=== PATIENT | female | born 1955 | race Caucasian/White ===

== ENCOUNTER 2022-06-24 13:22 | Emergency (ER) | payer BC, MEDICARE, SELFPAY ==
[2022-06-24 14:40] VITALS: BP 152/81; PULSE 72; RESP 20; TEMP 36.4; O2SAT 96; BMI 26.5
[2022-06-24 15:01] LABS: Apearance,Urine Clear (Clear); Bilirubin,Urine Negative (Negative); Blood, Urine Negative (Negative); Color,Urine Yellow (Yellow); Glucose,Urine (UA) Negative (Negative); Ketones,Urine Negative (Negative); Protein,Urine Negative (Negative); UTC Leukocyte Esterase,Urine Trace (Negative); UTC Nitrate,Urine Negative (Negative); Urobilinogen,Urine 0.2 EU/dl (0.2)
--- NOTE | 2022-06-24 15:20 | EXP.UTC ---
Discharge Plan Disposition Patient Disposition: Home, Self-Care Condition: Good Prescriptions Prescriptions: New cefdinir 300 mg capsule 300 mg PO Q12H 7 Days Qty: 14 0RF Referrals Follow up/Referrals: Yee Weiss MD [Primary Care Provider] - See instructions Activity Restrictions/Add. Instructions Additional Instructions/Restrictions: *Increase fluids. Water not Soda or Tea *Start antibiotic immediately and be sure to take as ordered for the FULL length of time although you should start to see improvement over the next 48 hours *Be SURE to follow up anytime for new or worsening symptoms with your family doctor. AND in 48 hours for urine culture results with your family doctor, if you do not have a doctor then you may call back to the [facility] for urine culture results and further treatment. We do recommend that you choose and establish care with a Primary Care Physician. ?AND follow up with them ?in 10-14 days to repeat UA to ensure infection is resolved and blood no longer present *Be sure to let your PCP know that we sent urine cultures from the [facility] so they can follow up to ensure that you area the on the correct antibiotic Call your doctor office and make appointment for 48 hours (2 days from today) ?to follow up and get the results of your urine culture and further treatment Clinical Impressions Clinical Impression: UTI (urinary tract infection) Instructions Patient Instructions: DI for Urinary Tract Infection (UTI) Discharge ED Provider: Chrissy Bran [facility] [place] General Stated complaint: sheehan when urinates Mode of Arrival: Ambulatory Source of Information: Patient and Parent(s) Limitations: No Limitations Time Seen by Provider: 06/24/22 15:21 Description of Symptoms (Recalled from Triage Doc. by RN): PATIENT C/O BURNING AND FREQUENCY WITH URINATION HEENT Symptoms (Recalled from RN notes): No Resp Symptoms (Recalled from RN notes): No Skin Symptoms (Recalled from RN notes): No MS Symptoms (Recalled from RN notes): No Functional Status (Recalled from RN notes): WNL History of Present Illness Provider Complaint: Patient states that she thinks she may have a UTI States that she has been having burning with urination and frequency States that feels like it does when she has UTI Related Data Previous Rx's Medication Instructions Recorded cefdinir 300 mg capsule 300 mg PO Q12H 7 days #14 caps 06/24/22 Allergies Allergy/AdvReac Type Severity Reaction Status Date / Time acetaminophen [From Midol] Allergy Verified 06/24/22 14:58 amoxicillin Allergy Verified 06/24/22 14:58 azithromycin Allergy Verified 06/24/22 14:58 cephalexin [From Keflex] Allergy Verified 06/24/22 14:58 pamabrom [From Midol] Allergy Verified 06/24/22 14:58 Penicillins Allergy Verified 06/24/22 14:58 Worker's Comp Is this a Worker's Comp case?: No PFSH PFSH Medical History (Updated 06/24/22 @ 15:37 by Chrissy Bran APRN) Hypertension Migraine Thyroid disease Urinary tract infection Social History (Updated 06/24/22 @ 14:42 by Jessica Marques RN) Smoking Status: Unknown if ever smoked alcohol intake: never current occupational status: other Travel in the last 8 weeks: None ROS Obtained: Yes All systems reviewed & no additional complaints except as documented and Yes Systems reviewed as appropriate & no additional complaints except as documented Constitutional Constitutional: Reports system reviewed and no additional complaints, except as documented and Reports as per HPI Cardiovascular Cardiovascular: Reports system reviewed and no additional complaints, except as documented and Reports as per HPI Respiratory Respiratory: Reports system reviewed and no additional complaints, except as documented and Reports as per HPI Gastrointestinal Gastrointestingal: Reports system reviewed and no additional complaints, except as documented and as per HPI Genitourinary Female Genitourinary: Reports system review
[2022-06-24 15:37] VITALS: BP 152/81; PULSE 72; RESP 20; TEMP 36.4; O2SAT 96
== END 2022-06-24 15:40 | disposition home or self-care (01) ==
PROVIDERS: Emergency Provider Nurse Practitioner; PCP Internal Medicine
DX: N39.0 Urinary tract infection, site not specified (principal); I10 Essential (primary) hypertension; E07.9 Disorder of thyroid, unspecified; G43.909 Migraine, unspecified, not intractable, without status migrainosus; Z88.0 Allergy status to penicillin; Z88.1 Allergy status to other antibiotic agents; Z88.3 Allergy status to other anti-infective agents; Z88.6 Allergy status to analgesic agent; Z88.8 Allergy status to other drugs, medicaments and biological substances
CPT/HCPCS: 81003; 87086; 87088; 87186; 99213; G0463

== ENCOUNTER 2022-07-30 16:17 | Emergency (ER) | payer BC, SELFPAY ==
[2022-07-30 16:42] VITALS: BP 179/100; PULSE 85; RESP 19; TEMP 36.7; O2SAT 99; BMI 26.5
--- NOTE | 2022-07-30 16:55 | EXP.UTC ---
Discharge Plan Disposition Patient Disposition: Home, Self-Care Condition: Good Prescriptions Prescriptions: New cefdinir 300 mg capsule 300 mg PO BID Qty: 20 0RF No Action cefdinir 300 mg capsule 300 mg PO Q12H 7 Days Qty: 14 0RF Referrals Follow up/Referrals: Marcos Prado MD [Primary Care Provider] - See instructions Activity Restrictions/Add. Instructions Additional Instructions/Restrictions: Drink plenty of fluids. Take the medications as directed. Follow up with your regular doctor. GO TO THE ER FOR ANY WORSENING SYMPTOMS We will culture the urine. That will tell what bacteria is causing your infection and which antibiotics will treat it best. Sometimes the first antibiotic we prescribe turns out to not work against different bacteria. So, make sure you follow up within 3 days if you are not getting better. Clinical Impressions Clinical Impression: UTI (urinary tract infection) Instructions Patient Instructions: Urinary Tract Infection, DI for Urinary Tract Infection (UTI) Discharge ED Provider: Shawn Mock [facility] General Stated complaint: URINATING BLOOD Mode of Arrival: Ambulatory Source of Information: Patient Limitations: No Limitations Time Seen by Provider: 07/30/22 17:12 Description of Symptoms (Recalled from Triage Doc. by RN): pt comes in with c/o urgency and passing blood with urination. symptoms began 2 hours ago. HEENT Symptoms (Recalled from RN notes): No Resp Symptoms (Recalled from RN notes): No Skin Symptoms (Recalled from RN notes): No MS Symptoms (Recalled from RN notes): No Functional Status (Recalled from RN notes): n/a History of Present Illness Provider Complaint: She states that since earlier today she has had dysuria, low back pain and hematuria. Related Data Previous Rx's Medication Instructions Recorded cefdinir 300 mg capsule 300 mg PO Q12H 7 days #14 caps 06/24/22 cefdinir 300 mg capsule 300 mg PO BID #20 caps 07/30/22 Allergies Allergy/AdvReac Type Severity Reaction Status Date / Time acetaminophen [From Midol] Allergy Verified 07/30/22 16:49 amoxicillin Allergy Verified 07/30/22 16:49 azithromycin Allergy Verified 07/30/22 16:49 cephalexin [From Keflex] Allergy Verified 07/30/22 16:49 pamabrom [From Midol] Allergy Verified 07/30/22 16:49 Penicillins Allergy Verified 07/30/22 16:49 Worker's Comp Is this a Worker's Comp case?: No PFSH PFSH Medical History Hypertension Migraine Thyroid disease Urinary tract infection Social History Smoking Status: Unknown if ever smoked alcohol intake: never current occupational status: other Travel in the last 8 weeks: None ROS Obtained: Yes All systems reviewed & no additional complaints except as documented Constitutional Constitutional: Denies chills and Denies fever(s) Eyes Eyes: Denies eye discharge ENT Ears, Nose, Mouth, and Throat: Denies dizziness, Denies otalgia and Denies sore throat Cardiovascular Cardiovascular: Denies chest pain Respiratory Respiratory: Denies shortness of breath, Denies chest congestion, Denies cough, Denies stridor and Denies wheezing Gastrointestinal Gastrointestingal: Denies nausea or vomiting Genitourinary Female Genitourinary: Reports as per HPI, Reports dysuria, Reports sexual dysfunction, Reports urinary frequency, Denies urinary incontinence and Reports urinary hesitancy Musculoskeletal Musculoskeletal: Reports system reviewed and no additional complaints, except as documented and Denies arthralgias Integumentary/Breasts Skin/Breast: Denies rash Neurologic Neurologic: Denies dizziness and Denies paresthesias Allergic/Immunologic Allergic/Immunologic: Denies wheezing Physical Exam General General appearance: alert and in no apparent distress Head Head exam: atraumatic, normocephalic and normal inspection Eye Eye ex
[2022-07-30 17:07] LABS: Apearance,Urine Cloudy (Clear); Color,Urine Red (Yellow)
[2022-07-30 17:08] LABS: Bilirubin,Urine 1+ (Negative); Blood, Urine 3+ (Negative); Glucose,Urine (UA) Negative (Negative); Ketones,Urine TRACE (Negative); Protein,Urine 2+ (Negative); Specific Gravity, Urine >= 1.030 (1.005-1.030); UTC Leukocyte Esterase,Urine 1+ (Negative); UTC Nitrate,Urine Positive (Negative); Urobilinogen,Urine 1 EU/dl (0.2)
[2022-07-30 17:23] VITALS: BP 179/100; PULSE 85; RESP 19; TEMP 36.7
== END 2022-07-30 17:37 | disposition home or self-care (01) ==
PROVIDERS: Emergency Provider Nurse Practitioner Family; PCP Internal Medicine
DX: N39.0 Urinary tract infection, site not specified (principal); R31.9 Hematuria, unspecified; M54.50 Low back pain, unspecified; I10 Essential (primary) hypertension; G43.909 Migraine, unspecified, not intractable, without status migrainosus; E07.9 Disorder of thyroid, unspecified; Z88.0 Allergy status to penicillin; Z88.1 Allergy status to other antibiotic agents; Z88.3 Allergy status to other anti-infective agents; Z88.8 Allergy status to other drugs, medicaments and biological substances; Z87.440 Personal history of urinary (tract) infections
CPT/HCPCS: 81003; 87086; 87088; 87186; 99213; G0463

== ENCOUNTER 2025-09-07 18:08 | Emergency (ER) | payer BC, SELFPAY ==
[2025-09-07] VITALS (10 sets, daily range): BP systolic 118–179; BP diastolic 70–103; PULSE 61–94; RESP 15–24; TEMP 36.3–37.1; O2SAT 95–98; BMI 24.7
--- NOTE | 2025-09-07 18:05 | ECG_ITS ---
APPROVED REPORT Exam: Resting ECG HR:92 bpm ECG Measurements Heart Rate 92 AXES [place] 152 P 63 QRSd 86 QRS 50 QT 339 T 7 QTc 389 Conclusion Normal sinus rhythm without acute ST or T wave changes concerning for ischemia Electronically signed by : Betsy Danielle, 09/08/2025 00:37:31
--- NOTE | 2025-09-07 18:12 | CT_ITS ---
PROCEDURE INFORMATION: Exam: CTA Abdomen and Pelvis With Contrast Exam date and time: 09/07/2025 7:18 PM Age: 70 years old Clinical indication: Abdominal pain; Epigastric; Additional info: Pain in epi TECHNIQUE: Imaging protocol: Computed tomographic angiography of the abdomen and pelvis with contrast. Exam focused on the arteries. 3D rendering (Not supervised by radiologist): MIP and/or 3D reconstructed images were created by the technologist. Radiation optimization: All CT scans at this facility use at least one of these dose optimization techniques: automated exposure control; mA and/or kV adjustment per patient size (includes targeted exams where dose is matched to clinical indication); or iterative reconstruction. Contrast material: ISOVUE; Contrast volume: 80 ml; Contrast route: INTRAVENOUS (IV); COMPARISON: CT ANGIO CHEST 09/07/2025 7:18 PM FINDINGS: Aorta: No aortic aneurysm. No aortic dissection. Celiac and mesenteric arteries: No occlusion or significant stenosis. Renal arteries: No occlusion or significant stenosis. Right iliac arteries: No occlusion or significant stenosis. Left iliac arteries: No occlusion or significant stenosis. Liver: Simple hepatic cysts. Gallbladder and biliary ducts: Cholecystectomy. Pancreas: Unremarkable. No mass. No ductal dilation. Spleen: Unremarkable. No splenomegaly. Adrenal glands: Unremarkable. No mass. Kidneys and ureters: Unremarkable. No solid mass. No hydronephrosis. Stomach and bowel: Diverticulosis without diverticulitis. Appendix: No evidence of appendicitis. Intraperitoneal space: Unremarkable. No free air. No significant fluid collection. Lymph nodes: Unremarkable. No enlarged lymph nodes. Urinary bladder: Unremarkable. No mass. Reproductive: Unremarkable as visualized. Bones/joints: Vacuum disc L5-S1. Soft tissues: Unremarkable. IMPRESSION: No CTA evidence of aortic dissection.
--- NOTE | 2025-09-07 18:12 | CT_ITS ---
PROCEDURE INFORMATION: Exam: CTA Chest With Contrast Exam date and time: 09/07/2025 7:18 PM Age: 70 years old Clinical indication: Pain; Chest pressure; Additional info: Cp TECHNIQUE: Imaging protocol: Computed tomographic angiography of the chest with contrast. Exam focused on the arteries. 3D rendering (Not supervised by radiologist): MIP and/or 3D reconstructed images were created by the technologist. Radiation optimization: All CT scans at this facility use at least one of these dose optimization techniques: automated exposure control; mA and/or kV adjustment per patient size (includes targeted exams where dose is matched to clinical indication); or iterative reconstruction. Contrast material: ISOVUE; Contrast volume: 80 ml; Contrast route: INTRAVENOUS (IV); COMPARISON: CT ANGIO CHEST 09/07/2025 7:18 PM FINDINGS: Pulmonary arteries: Normal. No pulmonary emboli. Aorta: Unremarkable. No aortic aneurysm. No aortic dissection. Thyroid: Thyroid goiter. Lungs: Unremarkable. No consolidation. No masses. Pleural spaces: Unremarkable. No pneumothorax. No pleural effusion. Heart: Unremarkable. No cardiomegaly. No pericardial effusion. Lymph nodes: Unremarkable. No enlarged lymph nodes. Liver: Hepatic cysts. Gallbladder and biliary ducts: Cholecystectomy. Bones/joints: Unremarkable. No acute fracture. Soft tissues: Unremarkable. IMPRESSION: 1. No CTA evidence of pulmonary embolus. 2. Thyroid goiter. 3. Cholecystectomy.
[2025-09-07 18:23] LABS: Hematocrit 43.2 % (37.0-47.0); Hemoglobin 14.4 g/dL (12.2-16.2); Immature Granulocytes % 0.1 %; Mean Corpuscular HGB Conc 33.3 g/dL (31.8-35.4); Mean Corpuscular Hemoglobin 28.4 pg (27.0-31.2); Mean Corpuscular Volume 85.2 fl (81-99); Nucleated Red Blood Cells % 0 %; Platelet Count 314 K/mm3 (142-424); Red Blood Count 5.07 M/mm3 (4.20-5.40); Red Cell Distribution Width-SD 39.7 fL; White Blood Count 8.2 K/mm3 (4.8-10.8)
[2025-09-07] MEDS: ASPIRIN 325MG TABLET 325 MG PO (18:32)
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
[2025-09-07] MEDS: FAMOTIDINE 20MG/2ML VIAL 20 MG IV (18:33)
[2025-09-07] MEDS: ONDANSETRON 4MG/2ML VIAL 4 MG IV (18:33)
[2025-09-07 18:46] LABS: Alanine Aminotransferase 35 U/L (12-78); Albumin Level 4.7 g/dl (3.5-5.0); Albumin/Globulin Ratio 1.3 (1.1-1.8); Alkaline Phosphatase 92 U/L (38-126); Anion Gap 9.1 mEq/L (5-15); Aspartate Amino Transferase 43 U/L (14-36); Bilirubin,Total 0.4 mg/dl (0.2-1.3); Blood Urea Nitrogen 23 mg/dl (7-17); Calcium 9.9 mg/dl (8.4-10.2); Carbon Dioxide 30 mmol/L (22.0-30.0); Chloride 101 mmol/L (98-107); Creatinine Clearance Estimated 51 mL/min (50-200); Creatinine,Serum 0.80 mg/dl (0.52-1.04); Estimated Glomerular Filt Rate 71 ml/min (>60); GFR (African American) 85 ML/MIN (>60); Globulin 3.7 g/dL (1.3-3.2); Glucose 118 mg/dl (74-100); Lipase 125 U/L (23-300); Magnesium 2.1 mg/dl (1.6-2.3); Potassium 3.1 mmoL/L (3.5-5.1); Sodium 137 mmol/L (136-145); Total Protein,Serum 8.4 g/dl (6.3-8.2)
[2025-09-07 18:49] LABS: Activated Partial Thrombo Time 22.8 seconds (22.8-30.6); INR 0.93 (0.9-1.1); Prothrombin Time 10.4 seconds (10.1-12.5)
[2025-09-07 19:07] LABS: Troponin I < 0.01 ng/ml (0.00-0.034)
[2025-09-07] MEDS: IOPAMIDOL-370 (76%);100ML BOTTLE 80 ML IV (19:20)
[2025-09-07] MEDS: 0.9 % SODIUM CHLORIDE 50 ML VIAL IV (19:20)
[2025-09-07] MEDS: SODIUM CHLORIDE 0.9% 10ML SYR (RAD ONLY) 10 ML IV (19:20)
[2025-09-07] MEDS: POTASSIUM CHLORIDE 20MEQ TAB 60 MEQ PO (19:39)
[2025-09-07 23:19] LABS: Troponin I < 0.01 ng/ml (0.00-0.034)
== END 2025-09-08 | disposition home or self-care (01) ==
PROVIDERS: Nurse Practitioner; Emergency Provider Student in an Organized Health Care Education/Training Program; PCP Internal Medicine
DX: R07.9 Chest pain, unspecified (principal)
CPT/HCPCS: 71275; 74174; 80053; 83690; 83735; 84484; 85025; 85610; 85730; 93005; 96374; 96375; 99285; J1308; J2405; Q9967

== ENCOUNTER 2025-09-23 09:03 | Outpatient (CLI) | payer BC, SELFPAY ==
--- NOTE | 2025-09-23 | CA_ITS ---
APPROVED REPORT Exam: Exercise Treadmill Technologist: Shreya Garcia Stress Nurse: Samantha CRONIN, RN Ht: 5 ft 3 in Wt: 139 lbs BSA: 1.66 m2 HR: 66 bpm BP: 162/75 mmHg Indications: Chest pain, shortness of breath, family history of coronary artery disease Stress Test Details Test: Exercise stress testing was performed using a Casey protocol. HR Resting HR: 66 bpm Max Heart Rate (APMHR): 148.472283 bpm Max HR Achieved: 144 bpm Target HR (85% APMHR): 125.674663 bpm % of APMHR: 97.30 Recovery HR: 82 bpm BP Resting BP: 162.0/75.0 mmHg Max BP: 185.0/74.0 mmHg Recovery BP: 138.0/81.0 mmHg ECG Stress ECG Conclusion Requested to stop test at 2:51 minutes due to leg fatigue. Symptoms: Leg fatigue Arrhythmias/Ectopy: PVC/Ventricular couplet ST-T Changes: Less than 0.[address] segment changes. Electronically signed by : Darlene Torre MD 09/23/2025 12:47:49
--- OUTSIDE RECORDS SUMMARY | 2025-09-23 09:06 | XMS_ITS | Data Portability ---
Author Organization [facility] THELMA Saucedo HOOVEN CLOSED Address [address] [place] [address] Care Team Providers Care Electronic Parts Designer Name Role Phone ADÁN ROSADO Referring Provider ADÁN ROSADO Primary Care Provider Assessment No assessment recorded. Plan of Treatment Reminders Order Date Submit Date Provider Last Modified By Organization Details Last Modified Time Details Appointments None recorded. Lab urinalysis panel, auto 2020 021 [email or web address] [facility], [address] [place], [place] [address], [place], [address], 16:12:13 urinalysis panel, auto 2020 021 [email or web address] [facility], [address] [place] [address], [place], [address], 16:44:00 urinalysis panel, auto 2020 021 [email or web address] [facility], [address] [place] [address], [address], 16:59:51 Referral None recorded. Procedures None recorded. Surgeries None recorded. Imaging None recorded. Medication Orders None recorded. Patient TargetsNo targets recorded. Patient Instructions Encounter Date Encounter Id Patient Instructions Last Modified By Organization Details Last Modified Time 02/24/2021 [id number] Dilation carried out due to symptoms. She prefers a no medication approach. We will proceed with cystoscopy and near future Not available 09/28/2021 17:39:43 05/14/2021 [id number] She had 1-2 day benefit following last visit. Cysto with dilation today unremarkable We will follow serial UA, consider repeat dilation with heparin cocktail in in 1 mo Not available 05/14/2021 09:30:26 06/23/2021 [id number] She says frequency and nocturia considerably better but not fully resolved. Heparin cocktail treatment today and we will see her back in 3-4 weeks for repeat if still having symptoms [email or web address] Not available 06/23/2021 16:43:59 07/21/2021 [id number] Overall, she feels that she has somewhat better than prior to initiation of treatment and she was distinctly better prior to her last visit here. Primary complaints are residual frequency nocturia and urgency but improved somewhat from her baseline. We discussed many options of continued treatments, medication, pelvic floor physiotherapy. She will see how she is doing over the next several weeks and continue warm soaks. She may call to schedule pelvic for PT if she desires. [email or web address] Not available 07/21/2021 16:12:12 Reason for Referral None Reported. Results Created Date Observation Date Name Description Value Unit Range Abnormal Flag Note LastModifiedBy Organization Detail LastModifiedTime 07/21/2007/21/2021 urina lysis panel , auto Unknown Analyte Clean Catch Not Available [facility] [address], [place], [address], 07/21/2021 15:45:17 07/21/20 21 07/21/2021 urina lysis panel , auto Unknown Analyte Yellow Not Available [facility] [address] , [place], [address], 07/21/2021 15:45:17 07/21/20 21 07/21/2021 urina lysis panel , auto Unknown Analyte Clear Not Available [facility] [address], [place], [address], 07/21/2021 15:45:17 07/21/20 21 07/21/2021 urina lysis panel , auto Unknown Analyte 1.020 Not Available [facility] [address] [facility], [place], [address], 07/21/2021 15:45:17 07/21/20 21 07/21/2021 urina lysis panel , auto Unknown Analyte 5.0 Not Available [facility] [address] [facility], [place], [address], 07/21/2021 15:45:17 07/21/20 21 07/21/2021 urina lysis panel , auto Unknown Analyte Negati ve Not Available [facility] [address] [facility], [place], [address], 07/21/2021 15:45:17 07/21/20 21 07/21/2021 urina lysis panel , auto Unknown Analyte Negati ve Not Available [facility] [address] [facility], [place], [address], 07/21/2021 15:45:17 07/21/20 21 07/21/2021 urina lysis panel , auto Unknown Analyte Negati ve Not Available [facility] [address] [facility], [place], [address], 07/21/2021 15:45:17 07/21/20 21 07/21/2021 urina lysis panel , auto Unknown Analyte Normal Not Available [facility] [address] [place], [address], 07/21/2021 15:45:17 07/21/20 21 07/21/2021 urina lysis panel , auto Unknown Analyte Negati ve Not Available [facility] [address] [place], [address], 07/21/2021 15:45:17 07/21/20 21 07/21/2021 urina lysis panel , auto Unknown Analyte Normal Not Available [facility] [address] [facility], [place], [address], 07/21/2021 15:45:17 07/21/20 21 07/21/2021 urina lysis panel , auto Unknown Analyte Negati ve Not Available [facility] [address] [facility], [place], [address], 07/21/2021 15:45:17 07/21/20 21 07/21/2021 urina lysis panel , auto Unknown Analyte Trace Not Available [facility] [address] [facility], [place], [address], 07/21/2021 15:45:17 06/23/20 21 06/23/2021 urina lysis panel , auto Unknown Analyte Clean Catch Not Available [facility] [address] [facility], [place], [address], 06/23/2021 15:31:39 06/23/20 21 06/23/2021 urina lysis panel , auto Unknown Analyte Yellow Not Available [facility] [address] [facility], [place], [address], 06/23/2021 15:31:39 06/23/20 21 06/23/2021 urina lysis panel , auto Unknown Analyte Clear Not Available [facility] [address] [facility], [place], [address], 06/23/2021 15:31:39 06/23/20 21 06/23/2021 urina lysis panel , auto Unknown Analyte 1.015 Not Available [facility] [address] [place], [address], 06/23/2021 15:31:39 06/23/20 21 06/23/2021 urina lysis panel , auto Unknown Analyte 7.0 Not Available [facility] [address] [facility], [place], [address], 06/23/2021 15:31:39 06/23/20 21 06/23/2021 urina lysis panel , auto Unknown Analyte Negati ve Not Available [facility] [address] [facility], [place], [address], 06/23/2021 15:31:39 06/23/2006/23/2021 urina lysis panel , auto Unknown Analyte Negati ve Not Available [facility] [address] [facility], [place], [address], 06/23/2021 15:31:39 06/23/20 21 06/23/2021 urina lysis panel , auto Unknown Analyte Negati ve Not Available [facility] [address] [facility], [place], [address], 06/23/2021 15:31:39 06/23/20 21 06/23/2021 urina lysis panel , auto Unknown Analyte Normal Not Available [facility] [address] [facility], [place], [address], 06/23/2021 15:31:39 06/23/20 21 06/23/2021 urina lysis panel , auto Unknown Analyte Negati ve Not Available [facility] [address] [place], [address], 06/23/2021 15:31:39 06/23/20 21 06/23/2021 urina lysis panel , auto Unknown Analyte Normal Not Available [facility] [address] [place], [address], 06/23/2021 15:31:39 06/23/20 21 06/23/2021 urina lysis panel , auto Unknown Analyte Negati ve Not Available [facility] [address] [facility], [place], [address], 06/23/2021 15:31:39 06/23/20 21 06/23/2021 urina lysis panel , auto Unknown Analyte Negati ve Not Available [facility] [address] [facility], [place], [address], 06/23/2021 15:31:39 02/25/20 21 02/24/2021 urina lysis panel , auto Unknown Analyte Clean Catch Not Available [facility] [address] [facility], [place], [address], 02/24/2021 11:20:52 02/25/20 21 02/24/2021 urina lysis panel , auto Unknown Analyte Yellow Not Available [facility] [address] [place], [address], 02/24/2021 11:20:52 02/25/20 21 02/24/2021 urina lysis panel , auto Unknown Analyte Clear Not Available [facility] [address] [facility], [place], [address], 02/24/2021 11:20:52 02/25/20 21 02/24/2021 urina lysis panel , auto Unknown Analyte 1.005 Not Available [facility] [address] [place], [address], 02/24/2021 11:20:52 02/25/20 21 02/24/2021 urina lysis panel , auto Unknown Analyte 7.0 Not Available [facility] [address] [place], [address], 02/24/2021 11:20:52 02/25/20 21 02/24/2021 urina lysis panel , auto Unknown Analyte Negati ve Not Available [facility] [address] [facility], [place], [address], 02/24/2021 11:20:52 02/25/20 21 02/24/2021 urina lysis panel , auto Unknown Analyte Negati ve Not Available [facility] [address] [facility], [place], [address], 02/24/2021 11:20:52 02/25/20 21 02/24/2021 urina lysis panel , auto Unknown Analyte Negati ve Not Available [facility] [address] [facility], [place], [address], 02/24/2021 11:20:52 02/25/20 21 02/24/2021 urina lysis panel , auto Unknown Analyte Normal Not Available [facility] [address] [facility], [place], [address], 02/24/2021 11:20:52 02/25/20 21 02/24/2021 urina lysis panel , auto Unknown Analyte Negati ve Not Available [facility] [address] [place], [address], 02/24/2021 11:20:52 02/25/20 21 02/24/2021 urina lysis panel , auto Unknown Analyte Normal Not Available [facility] [address] [place], [address], 02/24/2021 11:20:52 02/25/20 21 02/24/2021 urina lysis panel , auto Unknown Analyte Negati ve Not Available [facility] [address] [facility] [place] [facility] [place], [address], 02/24/2021 11:20:52 02/25/20 21 02/24/2021 urina lysis panel , auto Unknown Analyte Negati ve Not Available [facility] [address], [place], [address], 02/24/2021 11:20:52 Result Notes None recorded. Procedures Surgical History Date Name Laterality Status Provider Name and Address Organization Details Recorded Time 2020 Bladder Installation Heparin/Kenalog completed Kanika Bhatt [facility] 15:31:15 2020 Cystoscopy completed Consuelo Valentine [facility] 15:31:11 Other completed [facility] 11:06:53 bilateral extraction of cataracts completed [facility] 11:07:26 colonoscopy completed [facility] 11:07:37 esophagogastroduodenoscopy completed Nevin [facility] 11:07:44 Other completed Nevin [facility] 11:08:13 Imaging Results None recorded. Procedure Notes None recorded. Medical Equipment None Reported. Allergies Allergen ID Allergen Name Allergen Category Reaction Reaction Severity Criticality Documentation Date Start Date Code Code System Note Provider Name and Address Organization Details Recorded Time 729079 Paxil medicatio n Not available Not available Not available 09/16/20162012 21894 8 RxNorm Comme nt: Creat ed By: Krystle Lemus; Creat ed Date: 2012 2:27: 16 PM; Not Available [facility] 6 05:03:49 439472 Levaquin medicatio n Not available Not available Not available 09/16/20162012 22773 2 RxNorm Comme nt: Creat ed By: Krystle Arana Creat ed Date: 2012 2:28: 02 PM; Not Available [facility] 6 05:03:49 519233 acetamino phen / pamabrom medicatio n Not available Not available Not available 09/16/20162012 44990 4 RxNorm Comme nt: Creat ed By: Krystle Lemus; Creat ed Date: 2012 2:27: 41 PM; Not Available [facility] 6 09:50:52 730207 Cipro medicatio n Not available Not available Not available 09/16/2016201256 3 RxNorm Comme nt: Creat ed By: Krystle Lemus; Creat ed Date: 2012 2:27: 53 PM; Not Available [facility] 6 10:33:18 325007 Zithromax medicatio n Not available Not available Not available 09/16/20162012 40118 4 RxNorm Comme nt: Creat ed By: Krystle Lemus; Creat ed Date: 2012 2:28: 19 PM; Not Available [facility] 6 10:33:18 581852 Product containin g penicilli n (product) medicatio n Not available Not available Not available 02/24/2021 29671 8001 SNOMED Nevin Joana [facility] 11:00:19 497245 Keflex medicatio n Not available Not available Not available 02/24/202178845 7 RxNorm Nevin Goodrich [facility] 11:00:49 557952 ranitidin e Not available Not available Not available Not available 02/24/2021 9143 RxNorm Nevin Joana [facility] 11:10:22 Medications Name Sig Start Date Stop Date Status Note LastModified by Organization Details LastModified Time Vitamin C 500 mg tablet TAKE 1 TABLET BY MOUTH ONCE DAILY FOR 5 WEEKS 02/24 completed Not Available Not Available Not Available levothyro xine 25 mcg tablet TAKE 1 TABLET BY MOUTH ONCE DAILY active Not Available Not Available No t Available lisinopri l 10 mg tablet TAKE 2 TABLETS BY MOUTH TWICE DAILY active Not Available Not Available No t Available hydrochlo rothiazid e 12.5 mg capsule Daily 02/24 completed Duration : 10 days;Vince quency: daily;Me dication Descript ion: hydrochl orothiaz jim; Route:or al; refills: 0; Quantity :30 capsule Not Available Not Available Not Available omeprazol e 20 mg capsule,d elayed release TAKE 1 CAPSULE BY MOUTH TWICE DAILY active Not Available Not Available No t Available aspirin 81 mg tablet Daily active Duration : 30 days;Vince quency: daily;Me dication Descript ion: aspirin; Dosage:1 ; Route:or al; refills: 0; Quantity :30 tablet, dispersi ble Not Available Not Available Not Available hydrochlo rothiazid e 25 mg tablet TAKE 1 TABLET BY MOUTH ONCE DAILY active Not Available Not Available No t Available ergocalci ferol (vitamin D2) 1,250 mcg (50,000 unit) capsule TAKE 1 CAPSULE BY MOUTH ONCE A WEEK active Not Available Not Available No t Available estradiol 0.01% (0.1 mg/gram) vaginal cream INSERT 1 GRAM INTRAVAG INALLY AT BEDTIME NIGHTLY FOR 2 WEEKS THEN EVERY OTHER NIGHT UNTIL NEXT VISIT active Not Available Not Available No t Available cefdinir 300 mg capsule 02/24 completed Not Available Not Available Not Available potassium chloride ER 10 mEq tablet,ex tended release(p art/cryst ) TAKE 1 BY MOUTH TWICE DAILY active Not Available Not Available No t Available potassium chloride Daily 02/24 completed Frequenc y: daily;Me dication Descript ion: potassiu m chloride ; Dosage:1 ; refills: 5; Quantity :30 Not Available Not Available Not Available Super B Complex active Not Available Not Available Not Available omeprazol e 20 mg tablet,de layed release Daily 02/24 completed Frequenc y: daily;Me dication Descript ion: omeprazo le; Dosage:1 ; Route:or al; refills: 3; Quantity :30 delayed release tablet Not Available Not Available Not Available levothyro xine 125 mcg capsule Take 1 capsule every day by oral route. 07/21 completed Not Available Not Available Not Available Vitals Date Recorded Body height Body mass index (BMI) Body weight Provider Name and Address Organization Details Last Updated DateTime 02/24/2021 160.02 cm 27.5 kg/m2 88738.82 g Nevin Bernard [facility] 02/24/2021 10:59:47 Date Recorded Body height Body mass index (BMI) Body weight Provider Name and Address Organization Details Last Updated DateTime 06/23/2021 160.02 cm 27.5 kg/m2 39046.82 g Consuelo Valentine [facility] 06/23/2021 15:30:52 Date Recorded Body height Body mass index (BMI) Body weight Provider Name and Address Organization Details Last Updated DateTime 07/21/2021 160.02 cm 27.5 kg/m2 46648.82 g Consuelo Valentine [facility] 07/21/2021 15:40:46 Social History Question Answer Notes LastModified by [email or web address] Details LastModified Time Tobacco Smoking Status Former Smoker quit in 1986 Nevin [facility] 02/24/2021 11:04:22 Marital Status Information not available 02/24/2021 Sex: Unknown Functional Status Question Answer Note LastModified by [email or web address] Details LastModified Time What is your level of alcohol consumption? None Information not available 02/24/2021 What is your occupation? [employer] [place] Information not available 02/24/2021 Mental Status None recorded. Family History Relationship Description Onset Age of this Age Resolved Age Notes LastModified by Organization Details LastModified Time Father Family history of malignant neoplasm sister ,grand mother , grandf ather hstrang Not available 02/24/2021 11:03:37 Brother Diabetes mellitus father hstrang Not available 2020 11:03:49 Medical History Condition Response Allergies/Hayfever Y False Teeth Y Arthritis Y Heart Arrhythmia Y Thyroid Disorder Y Hepatitis Y Hypertension Y Gynecological HistoryNo gynecological history recorded. Obstetrics History GPAL:G 0 P 0 0 0 0 Past Encounters Encounter ID Performer Location Encounter Start Date Encounter Closed Date Diagnosis/Indication Diagnosis SNOMED-CT Code Diagnosis ICD10 Code Diagnosis IMO Codes Diagnosis Note [id number] MASON CHAMBERS MD [facility]OLOGY [facility] [address] [place] [address] 02/24/2021 10:28:45 02/26/2021 08:57:15 Recurrent urinary tract infection 966056097 N39.0 [id number] MASON CHAMBERS MD SURGERY SCHEDULE [address] [place] [address] 05/14/2021 07:38:32 05/14/2021 07:40:57 Recurrent urinary tract infection 323373697 N39.0 Pain in pelvis 95696136 R10.2 [id number] MASON CHAMBERS MD UROLOGY 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 [address] [id number] 07/21/2021 15:18:44 07/21/2021 16:12:53 Recurrent urinary tract infection 498219553 N39.0 Urethral syndrome 899486 04 N34.3 Increased frequency of urination 863068251 R35.0 Health Concerns Section Related Observation LastModified by Organization Detai ls LastModified Time None Recorded Concern Status LastModified by Organization Details LastModified Time None Recorded Advance Directives Directive None Recorded Payers Insurance Date Sequence Insurance Name Policy Number Policy Hunter Covered Member ID Hunter Member ID Guarantor Name 07/18/2021 1 [employer] [id number] Diana Angeles [id number] Diana Angeles Notes Date Note Type Note Provider Name and Address Organization Details Recorded Time 02/24/2021 text/html 65 yo female, new patient, is referred for evaluation possible cystitis. Her current symptoms began 3-4 months ago and include pelvic pressure and cramping,frequency , urgency to urinate,occasional difficulty initiating stream and nocturia x1-2.She initially suspected UTI. UA was positive for blood and her PCP prescribed an antibiotic. Symptoms resolved but returned shortly thereafter. Repeat urinalysis was negative. She has had no fever or chills or gross hematuria. She gives previous history of recurrent UTI. She describes a procedure which may have been cystoscopy with RPGs carried out 20-25 years ago.She may have passed a stone in her teens. She does have clear recollection of these events. MASON CHAMBERS MD [address] [place] [address] [place], [address], [facility] 09/28/2021 17:39:53 06/23/2021 text/html 66 yo female returns for a 1 mo f/u visit previously seen due to cystitis-s/p Cystoscopy w dilation performed 05/14. She does feel her symptoms have improved following instillation tx but continues to have urgency to void. She states that her stream is adequate at times but hesitant on occasion. She denies recent dysuria, no additional voiding complaints. MASON CHAMBERS MD [address] [place] [address] [place], [address], [facility] 06/23/2021 16:45:25 07/21/2021 text/html 66 yo female returns for a 3 wk f/u visit previously seen due to increased frequency managed with instillation/tx. She states that following her last visit she had pain and slight bleeding with slight worsening of OAB sx. She continues to have increased urgency/frequency and at times is able to urinate a large amount and others only small. Overall, she feels that she has somewhat better than prior to initiation of treatment and she was distinctly better prior to her last visit here. She denies current dysuria, no recent hematuria. MASON CHAMBERS MD [address] [place] [address] [place], [address], [facility] 07/21/2021 16:12:27 OBGyn Episode No OBEpisode recorded.
[2025-09-23 10:10] VITALS: BP 162/75; BP 185/74; PULSE 66; RESP 14
[2025-09-23] MEDS: SODIUM CHLORIDE 0.9% 10ML SYR (RAD ONLY) 10 ML IV ×2 (10:22→10:23)
[2025-09-23] MEDS: ISOTOPE MYOVIEW (PER STUDY) 1 DOSE IV (10:23)
--- NOTE | 2025-09-23 11:30 | NM_ITS ---
APPROVED REPORT Exam: Nuclear Stress Test Indication: Chest pain, HTN, Family history Patient Location: Outpatient Stress Tech: Shreya Garcia NM Tech:Marga Soria, ARRT, RT (R)(N) Ht: 5 ft 3 in Wt: 135 lbs Bra Size: 36C HR: 68 bpm BP: 162/75 mmHg BSA: 1.64 m2 TID: 1.41 BMI: 23.9 History: Chest pain, HTN, Family history Procedure: Patient exercised on Casey protocol 2:51 minutes and sec, resting heart rate 68 bpm, resting blood pressure 162/75 mmHg, with exercise maximum heart rate achived was 144 bpm which is 97 % of the maximum predicted heart rate and blood pressure was 185/74 mmHg. Test was stopped due to SOB, leg fatigue. Patient denied any complaint of chest pain. Patient has fair exercise capacity, achieved 4.7 METs of workload on treadmill, the blood pressure response to exercise was normal.. Cardiac Stress and Resting SPECT Images: Cardiac Stress and Resting SPECT images were obtained using technetium 99m Myoview 31.1 mCi stress and 9.61 mCi at rest. Resting and stress imaging in supine and prone positions demonstrate no evidence of fixed or reversible perfusion defects. There is increase in transient ischemic dilatation ratio (TID 1.41), which may be suggestive of possible multivessel disease or balanced ischemia. Gated imaging demonstrates normal global LV systolic function. LVEF is calculated at 72%. Conclusion: No evidence of fixed or reversible perfusion defects. There is increase in transient ischemic dilatation ratio (TID 1.41), which may be suggestive of possible multivessel disease or balanced ischemia. Gated imaging demonstrates normal global LV systolic function. LVEF is calculated at 72%. Electronically signed by : Darlene Torre MD 09/23/2025 12:47:41
--- NOTE | 2025-09-23 13:45 | CA_ITS ---
APPROVED REPORT EXAM: Comprehensive 2D, Doppler, and color-flow Echocardiogram Recreation Leader: Mackenzie Perez RVT Ht: 5 ft 3 in Wt: 139lbs BSA: 1.66 BP: 130/75 mmHg Indications: CHEST PAIN,SHORTNESS OF BREATH 2D Dimensions LA Volume 27.90 mL LA Volume Index 16.81 mL/m2 (M/F) 16-34 M-Mode Dimensions RVDd 2.67 cm (0.9-2.6) LA Diam 3.21 cm (1.9-4.0) LVDd 4.09 cm (3.5-5.7) LVDs 2.99 cm (3.5-5.7) IVSd 1.00 cm (0.6-1.1) PWd 0.43 cm (0.6-1.1) EF (Teich) 53.00% FS 26.90% EDV (Teich) 73.80 mL TAPSE 1.90 (<1.7) ESV (Teich) 34.70 mL LV Diastology E Decel Time 153 (160-240 msec) E/A Ratio 0.8 Aortic Valve LOLA Index 1.54 cm2/m2 AoV Peak Yuri. 135.0 (50-130 cm/s) AO Peak GR. 7.30 mmHg AO Mean GR. 3.90 (<5 mmHg) AO VTI 27.9 (18-25 cm) LOLA (VTI) 2.61 (2.5-4.5 cm2) Mitral Valve MV E Max Yuri. 79.0 (40-130 cm/s) MV A Velocity 95.0 (40-130 cm/s) E/A Ratio 0.83 MV PHT 45.0 ms Pulmonary Valve PV Peak Velocity 77.0 (50-150 cm/s) Tricuspid Valve TR P. Velocity 245.00 cm/s RAP Estimate 8.00 mmHg RVSP 32.10 mmHg Left Ventricle The left ventricle is normal size. Left ventricular systolic function is normal. The left ventricular ejection fraction is within the normal range. Proximal septal thickening is present. There is normal LV segmental wall motion. The left ventricular diastolic function is normal. LVEF is 60%. Right Ventricle The right ventricle is normal size. The right ventricular systolic function is normal. Atria The left atrium is mildly dilated. The right atrium size is normal. There is no color Doppler evidence of interatrial shunt. Aortic Valve The aortic valve is mildly thickened. There is no hemodynamically significant aortic valvular stenosis. Trace aortic regurgitation is present. Mitral Valve The mitral valve is normal in structure. No evidence of mitral valve stenosis. Mild mitral regurgitation is present. Tricuspid Valve The tricuspid valve leaflets are thin and pliable. Mild tricuspid regurgitation. RVSP is 25-30 mmHg. Pulmonic Valve The pulmonary valve is grossly normal in structure. Trace pulmonic valve regurgitation is present. Great Vessels The aortic root is normal in size. IVC is normal in size and collapses >50% with inspiration. Pericardium There is no pericardial effusion. Other Information Study Quality: Fair Conclusion Normal biventricular systolic function. Mild LA dilation. Mild MR, mild TR. Electronically signed by : Darlene Torre MD 10/01/2025 00:27:11
== END 2025-09-23 23:59 | disposition home or self-care (01) ==
LOC: RAD 09:04
PROVIDERS: PCP Internal Medicine; Visit Provider Nurse Practitioner Family
DX: I08.1 Rheumatic disorders of both mitral and tricuspid valves (principal); I11.9 Hypertensive heart disease without heart failure; I49.3 Ventricular premature depolarization; R94.39 Abnormal result of other cardiovascular function study; Z82.49 Family history of ischemic heart disease and other diseases of the circulatory system
CPT/HCPCS: 78452; 93017; 93018; 93306; A9502

== ENCOUNTER 2025-10-01 11:58 | Outpatient (CLI) | payer BC, SELFPAY | END 2025-10-01 23:59 | disposition home or self-care (01) | PROVIDERS: PCP Internal Medicine; Visit Provider Physician Assistant | DX: Z01.818 Encounter for other preprocedural examination (principal); I47.10 Supraventricular tachycardia, unspecified; R93.1 Abnormal findings on diagnostic imaging of heart and coronary circulation; R06.02 Shortness of breath; Z82.49 Family history of ischemic heart disease and other diseases of the circulatory system | CPT/HCPCS: 93270 ==

== ENCOUNTER 2025-10-01 12:49 | Outpatient (CLI) | payer BC, SELFPAY ==
[2025-10-01 12:53] VITALS: BMI 24.4
--- NOTE | 2025-10-01 13:00 | CT_ITS ---
APPROVED REPORT Trade Manager: CLINICAL INDICATION Chest Pain TECHNIQUE Image Acquisition: A 128 slice MDCT scanner ([employer] View) was used for data acquisition. A noncontrast coronary calcium scan was performed. A CT attenuation threshold of 130 Hounsfield units (HU) was used for the detection of calcium in contiguous voxels of 1 sq mm in area to be counted as individual lesions. Bolus tracking in the ascending aorta with a threshold of 180 HU was performed. Immediately afterwards, ECG synchronized cardiac CT was then performed from the cardiac base to apex using retrospective gating with ECG tube current modulation. A total of 85 mL of Isovue 370 mg/mL contrast medium was administered at 5 mL/sec followed by a saline flush using a biphasic injection protocol. A tube voltage of 120 KVp was used. Image Reconstruction Transaxial images were reconstructed at 0.67 mm slide thickness. Data was reviewed interactively on an advanced workstation capable of 2 and 3-dimensional displays in all conventional reconstruction formats, including multiplanar reformations, maximum intensity projections, curved multiplanar reformations, and volume rendered reconstructions. When applicable, selected routine images describing the relevant coronary anatomy and pathology were saved and sent to PACS. Complications None Technical Quality Overall image quality was good. Coronary artery opacification was adequate. Total DLP (Dose-Length Product) is 1767.5 mGy-cm. The reported value represents the total of one or more individual components during the CT acquisition of this date and at this time, and as such, the same value may appear in more than one CT report depending on the interpreting/reporting physicians. COMPARISON None FINDINGS CT Coronary Calcium Scoring LMA (Left Main Artery) = 0 LAD (Left Anterior Descending) = 0 LCX (Left Coronary Circumflex) = 0 RCA (Right Coronary Artery) = 0 Total Calcium Score = 0 using the AJ-130 method. The interpretation of the calcium heart score is based on the following continuum*: 0 = no calcified plaque detected (risk of coronary artery disease is very low ??? less than 5%) 1-10 = calcium detected in extremely minimal levels (risk of coronary diseases is still low ??? less than 10%) 11-100 = mild levels of plaque detected with certainty (mild or minimal narrowing of heart arteries is likely) 101-400 = definite,at least moderate levels of plaque detected (relatively high risk of a heart attack within 3-5 years) >401-999 = extensive levels of plaque detected (high risk of heart attack, high levels of vascular disease are present, high likelihood of at least one significant coronary narrowing) *The calcium heart score quantifies the burden of coronary calcification/plaque in the coronary arteries. The calcium heart score is not able to evaluate the presence or burden of non-calcified (i.e. soft) plaque. There is no identifiable calcification in the aortic valve, mitral annulus or mitral valve, pericardium, or myocardium. Coronary CT Angiography The coronary arterial system is right dominant. Quantitative Stenosis Grading: Left Main (LM): The left main originates normally from the left sinus of Valsalva. The LM bifurcates into the left anterior descending artery and left circumflex artery. The LM is patent with no evidence of atherosclerosis. Left Anterior Descending (LAD) and Diagonal Branches: The LAD gives off 3 diagonal branch(es). The LAD and its branches are patent with no evidence of atherosclerosis. There is no evidence of LAD-myocardial bridge. Left Circumflex (LCX) and Obtuse Marginals (OM): The LCX gives off 1 Obtuse Marginal (OM) branch(es). The LCX and its branches are patent with no evidence of atherosclerosis. Right Coronary Artery (RCA): The RCA originates normally from the right sinus of Valsalva. The RCA gives off a posterior descending artery (PDA) and posterolateral (PL) branches. The RCA and its branches are patent with no evidence of atherosclerosis. Non-Coronary Cardiac Findings: Analysis of the left ventricular (LV) structure and function was performed after 3-D reconstruction of the LV from axial images, with user-corrected automatic contouring for assessment of LV volumes and user-defined reconstruction from oblique planes for measurement of 3-D cardiac structure and function. -The left ventricle systolic function is normal. -There is no left atrial appendage filling defect. Two right pulmonary veins and two left pulmonary veins drain normally into the left atrium. -No pericardial thickening or calcification. -Central and branch pulmonary arteries in the [id number] are unremarkable. -Thoracic aorta within the visualized thoracic aortic-branches in the [id number] is unremarkable. Extracardiac Structures No significant extra-cardiac findings. Note, however, that this study is focused on the cardiac findings. IMPRESSION -Absence of coronary calcification with an Agatston score = 0 using the AJ-130 method. -No evidence of significant flow-limiting atherosclerosis of the coronary arteries. -No evidence of coronary anomalies or myocardial bridging. -CAD-RADS 0. Management recommendations per ACC/AHA guidelines*, as clinically appropriate. -Mild calcification noted in the descending thoracic aorta. *Recommendations: CAD RADS 0: Reassurance. Consider non-atherosclerotic causes of chest pain. CAD RADS 1: Consider non-atherosclerotic causes of chest pain. Consider preventive therapy and risk factor modification. CAD RADS 2: Consider non-atherosclerotic causes of chest pain. Consider preventive therapy and risk factor modification, particularly for patients with nonobstructive plaque in multiple segments. CAD RADS 3: Consider further functional testing. Consider symptom-guided anti-ischemic and preventive pharmacotherapy as well as risk factor modification per published guideline statements. CAD RADS 4A: Consider further functional testing or invasive coronary angiography with revascularization per published guideline statements. Consider symptom-guided anti-ischemic and preventive pharmacotherapy as well as risk factor modification per published guideline statements. CAD RADS 4B: Invasive coronary angiography recommended with revascularization per published guideline statements. Consider symptom-guided anti-ischemic and preventive pharmacotherapy as well as risk factor modification per published guideline statements. CAD RADS 5: Consider invasive angiography and/or viability assessment with revascularization per published guideline statements. Consider symptom-guided anti-ischemic and preventive pharmacotherapy as well as risk factor modification per published guideline statements. CRITICAL RESULT None COMMUNICATION Per this written report The coronary and cardiac findings of this CCTA were reviewed, reported, and signed by Saleem Torre MD (Artificial Foliage Arranger) Conclusion Electronically signed by : Darlene Torre MD 10/04/2025 16:46:24
[2025-10-01 13:17] VITALS: BP 163/89; PULSE 70; RESP 16; O2SAT 99
[2025-10-01] MEDS: 0.9 % SODIUM CHLORIDE 50 ML VIAL IV (13:37)
[2025-10-01] MEDS: IOPAMIDOL-370 (76%);100ML BOTTLE 85 ML IV (13:38)
[2025-10-01] MEDS: SODIUM CHLORIDE 0.9% 10ML SYR (RAD ONLY) 10 ML IV (13:38)
== END 2025-10-01 13:41 | disposition home or self-care (01) ==
PROVIDERS: PCP Internal Medicine; Visit Provider Physician Assistant
DX: Z01.810 Encounter for preprocedural cardiovascular examination (principal); I70.0 Atherosclerosis of aorta; R93.1 Abnormal findings on diagnostic imaging of heart and coronary circulation; R07.89 Other chest pain; Z82.49 Family history of ischemic heart disease and other diseases of the circulatory system
CPT/HCPCS: 75574; Q9967